=== PATIENT | male | born 1970 | race Two or more races ===

== ENCOUNTER 2019-03-08 07:29 | Inpatient (IN) | payer BC, OTHER ==
[~2019-03-08] VITALS: Ht 170.2 cm; Wt 74.0 kg
[2019-03-08 08:02] LABS: Urine Bacteria NONE SEEN /hpf (None Seen); Urine Blood Negative /uL (Negative); Urine Mucus FEW (None Seen); Urine Specific Gravity 1.022 (1.001-1.035); Urine WBC 1 /hpf (0 - 3)
[2019-03-08 08:20] LABS: Basophils # (auto) 0 uL; Basophils % (auto) 0.3 % (0.0-2.0); Eosinophils # (auto) 0.1 uL; Eosinophils % (auto) 0.7 % (0.0-7.0); Hematocrit 45.9 % (41.0-53.0); Hemoglobin 15.7 g/dL (13.5-17.5); Lymphocytes # (auto) 1.9 uL; Mean Corpuscular Hemoglobin 31.4 pg (28.0-32.0); Mean Corpuscular Hgb Conc. 34.2 g/dL (32.0-36.0); Mean Corpuscular Volume 91.6 fL (80.0-100.0); Monocytes # (auto) 0.9 uL; Monocytes % (auto) 8.3 % (0.0-12.0); Neutrophils # (auto) 7.8 uL; Neutrophils % (auto) 72.7 % (37.0-80.0); Platelet Count (auto) 376 10^3/uL (140-450); Red Blood Cells 5.01 10^6/uL (4.5-5.90); Red Cell Distribution Width 13.5 % (11.8-14.3); White Blood Cell 10.8 10^3/uL (4.4-10.8)
[2019-03-08 08:37] LABS: Albumin 3.9 g/dL (3.4-5.0); Calcium 8.9 mg/dL (8.5-10.1); Potassium 3.8 mmol/L (3.5-5.1)
[2019-03-08 08:40] LABS: BUN/Creatinine Ratio 7.2; Bilirubin, Total 1.2 mg/dL (0.2-1.0); Total Protein 7.6 g/dL (6.4-8.2)
[2019-03-08] MEDS ORDERED: PIPERACILLIN-TAZOB 3.375GM 100 ML IV ONE (09:15)
[2019-03-08] MEDS ORDERED: cefTRIAXone 1GM/50ML D5W 50 ML IV ONE (13:30)
[2019-03-08] MEDS ORDERED: ACETAMINOPHEN 500 MG TAB PO PRN (13:30)
[2019-03-08] MEDS ORDERED: TEMAZEPAM 15 MG CAP PO PRN (13:30)
[2019-03-08] MEDS ORDERED: NITROGLYCERIN 0.4 MG SL TAB SL PRN (13:30)
[2019-03-08] MEDS ORDERED: MORPHINE SULF INJ 2 MG/ML SYRINGE 1ML IV PRN (13:30)
[2019-03-08] MEDS ORDERED: PROMETHAZINE HCL 25 MG/ML 1ML IV PRN (13:30)
[2019-03-08] MEDS ORDERED: HYDROcodone-ACET 5/325MG TAB PO PRN (13:30)
[2019-03-08] MEDS ORDERED: MORPHINE SULFATE 4 MG/ML SYR/VIAL IV PRN (13:30)
[2019-03-08] MEDS ORDERED: DEXTROSE (50%) 50ML SYRG IV PRN (13:30)
[2019-03-08 15:09] VITALS: BP 107/59
[2019-03-08 15:15] VITALS: BP 107/59
[2019-03-08] MEDS: metroNIDAZOLE 500MG/100ML 100 ML IV SCH ×2 (15:45→22:00)
[2019-03-08] MEDS: SODIUM CHLORIDE 0.9% 1,000 ML IV SCH ×2 (15:46→23:18)
[2019-03-08 16:00] VITALS: BP 107/59
[2019-03-08] MEDS: ACCU-CHEK COMFORT CURVE STRIP VI SCH ×2 (18:17→23:35)
--- NOTE | 2019-03-08 19:10 | NUR ---
RECEIVED PATIENT LYING IN BED, AWAKE, ALERT, ORIENTED X4. NO S/S OF RESPIRATORY DISTRESS, DENIES SOB AND CHEST PAIN. DENIES ABDOMINAL PAIN, NAUSEA AND VOMITING. ORIENTED ON PLAN OF CARE. BED IS LOCKED AND IN LOWEST LEVEL. SIDE RAILS UP X2, CALL LIGHT WITHIN REACH. WILL CONTINUE TO MONITOR.
[2019-03-08 22:00] VITALS: BP 108/63
[2019-03-08] MEDS: FAMOTIDINE 20 MG TAB PO SCH (22:00)
[2019-03-09 05:19] VITALS: BP 93/60
[2019-03-09] MEDS: metroNIDAZOLE 500MG/100ML 100 ML IV SCH (05:43)
[2019-03-09] MEDS: SODIUM CHLORIDE 0.9% 1,000 ML IV SCH (05:44)
[2019-03-09] MEDS: ACCU-CHEK COMFORT CURVE STRIP VI SCH (05:44)
--- NOTE | 2019-03-09 07:13 | NUR ---
CARE ENDORSED TO AM SHIFT RN
--- NOTE | 2019-03-09 08:00 | NUR ---
Opening Shift Note Assumed care of patient, awake and alert. No S/S of distress/SOB or pain. Instructed on POC and to call for assist PRN, will continue to monitor for changes Q1hr and PRN.
[2019-03-09 08:43] VITALS: BP 120/63
[2019-03-09] MEDS ORDERED: cefTRIAXone 1GM/50ML D5W 50 ML IV SCH (09:00)
[2019-03-09] MEDS: FAMOTIDINE 20 MG TAB PO SCH (09:25)
[2019-03-09 12:14] VITALS: BP 123/78
--- NOTE | 2019-03-09 13:54 | NUR ---
Discharge instructions given as ordered. Encourage to follow up with PMD as instructed. Patient will talk to insurance regarding obtaining a new PCP. [employer] Card given to the patient. All questions and concerns addressed. Patient verbalized understanding. Medication reconciliation form completed and copy given to patient. IV removed with catheter intact, pressure dressing applied. Telemetry unit returned to [facility]. Patient ambulated with all personal belongings, accompanied by staff and family member. No distress noted at time of departure.
== END 2019-03-09 14:49 | disposition home or self-care (01) | DRG 392 ==
LOC: ER 07:32 → TELE 13:20 → TELE-CENTR 14:59
PROVIDERS: ADMIT Internal Medicine; ATTEND Internal Medicine
DX: K57.32 Diverticulitis of large intestine without perforation or abscess without bleeding (principal); Z83.3 Family history of diabetes mellitus; R73.9 Hyperglycemia, unspecified
CPT/HCPCS: 36415; 74176; 80053; 81001; 82962; 83036; 83605; 85025; 87040; 96374; 96375; G0378; J0696; J2543; J3490